=== PATIENT | male | born 1995 | race Caucasian/White ===

== ENCOUNTER → 2016-05-31 | Outpatient (CLI) | payer OTHER ==
--- NOTE | 2016-06-01 09:55 | DI ---
Indication: ITS.REASON: S89.92XA INJURY TO KNEE twisting injury one week ago with posterior lateral pain PROCEDURE: MRI KNEE LEFT W/O CONTRAST: Encounter: Initial Comparison: None Technique: Multiplanar multisequence MR imaging of the left knee was performed without contrast. Findings: The lateral meniscus is intact. Medial meniscus is normal. Complete rupture of the ACL. The PCL is intact. The MCL shows some edema superficial and deep to the ligament but no obvious disruption. Lateral collateral ligament complex is intact. There appears to be a partial tear of the origin of the patellar tendon best seen on sagittal T2 images number seven and eight. There is also edema in the superior aspect of Hoffa's fat pad. Kissing bone contusions in the lateral femoral condyle and posterior lateral tibial plateau. The remaining bone marrow signal intensity is normal. The cartilage of the medial, lateral and patellofemoral compartments is normal. Moderate joint effusion. No Johnston's cyst. Popliteus tendon is intact. Muscular signal intensity is normal. Impression: 1. Complete rupture of the ACL with associated bone contusions. 2. Grade 1 MCL injury. 3. Partial tearing of the patellar tendon origin. .
== END ==
LOC: IMA 17:37
PROVIDERS: ATTEND Family Medicine Sports Medicine
DX: S83.512A Sprain of anterior cruciate ligament of left knee, initial encounter (principal); S86.812A Strain of other muscle(s) and tendon(s) at lower leg level, left leg, initial encounter; S83.412A Sprain of medial collateral ligament of left knee, initial encounter; X58.XXXA Exposure to other specified factors, initial encounter; Y93.61 Activity, american tackle football; Y92.321 Football field as the place of occurrence of the external cause; Y99.8 Other external cause status; M25.462 Effusion, left knee